=== PATIENT | female | born 1980 | race Caucasian/White ===

== ENCOUNTER 2017-12-29 15:58 | Emergency (ER) | payer BC ==
[~2017-12-29 15:58] MED LIST: cefTRIAXone 1 GM Vial IM ONE
[2017-12-29] MEDS ORDERED: Take Home: Amoxicillin 500 MG Cap, 2 Cap Pack PO ONE (15:59)
--- NOTE | 2017-12-29 16:05 | EDM.PDOC ---
ED HPI GENERAL MEDICAL PROBLEM - General Chief Complaint: ENT Problem Stated Complaint: sore throat Time Seen by Provider: 12/29/17 15:58 Source of Information: Reports: Patient - History of Present Illness INITIAL COMMENTS - FREE TEXT/NARRATIVE: Patient comes into the emergency department with a 2 day history of severe sore throat, chills, fever, and swollen lymph nodes. Denies any other symptoms. - Related Data Allergies Allergy/AdvReac Type Severity Reaction Status Date / Time No Known Allergies Allergy Verified 03/12/16 16:25 Home Meds: Home Meds Amoxicillin 500 mg PO BID 9 Days #18 tablet 12/29/17 [Rx] Past Medical History Psychiatric History: Reports: Anxiety Social & Family History - Tobacco Use Smoking Status *Q: Unknown Ever Smoked ED ROS GENERAL - Review of Systems Review Of Systems: See Below Constitutional: Reports: Fever, Chills, Malaise HEENT: Reports: Throat Pain Respiratory: Reports: No Symptoms Cardiovascular: Reports: No Symptoms Endocrine: Reports: No Symptoms GI/Abdominal: Reports: No Symptoms ED EXAM, GENERAL - Physical Exam Exam: See Below Exam Limited By: No Limitations General Appearance: Alert, WD/WN, No Apparent Distress Ears: Normal External Exam, Normal Canal, Hearing Grossly Normal, Normal TMs Nose: Normal Inspection, Normal Mucosa Throat/Mouth: Other (redness, patechia, ) Head: Atraumatic, Normocephalic Neck: Supple, Full Range of Motion, Lymphadenopathy (L), Lymphadenopathy (R) Respiratory/Chest: No Respiratory Distress, Lungs Clear, Normal Breath Sounds, No Accessory Muscle Use, Chest Non-Tender Cardiovascular: Normal Peripheral Pulses Course - Orders/Labs/Meds Meds: Medications Discontinued Medications Generic Name Dose Route Start Last Admin Trade Name Nikitaq PRN Reason Stop Dose Admin Amoxicillin 1 packet 12/29/17 15:59 Take Home: Amoxicillin 500 Mg, 2 Cap Pack PO 12/29/17 16:00 ONETIME ONE Ceftriaxone Sodium 1 gm 12/29/17 15:58 Rocephin IM 12/29/17 15:59 ONETIME ONE Departure - Departure Time of Disposition: 16:15 Disposition: Home, Self-Care 01 Condition: Good Clinical Impression: Pharyngitis Qualifiers: Pharyngitis/tonsillitis etiology: unspecified etiology Qualified Code(s): J02.9 - Acute pharyngitis, unspecified - Discharge Information Prescriptions: Amoxicillin 500 mg PO BID 9 Days #18 tablet Instructions: Amoxicillin capsules or tablets, Pharyngitis Forms: ED Department Discharge - Problem List Review Problem List Initiated/Reviewed/Updated: Yes - Assessment/Plan Assessment:: 1. pharyngitis 2. severe sore throat Plan: 1. Rocephin IM injection in the ER. 2. Prescription sent with the patient filled 1 day supply sent with the patient for the pharmacy is not open until Sunday 3. Education provided with the patient regarding pharyngitis 4. Activity and diet as tolerated
== END 2017-12-29 16:53 | disposition home or self-care (01) ==
LOC: VM.ED 15:58
DX: J02.9 Acute pharyngitis, unspecified (principal)
CPT/HCPCS: 96372; 99282; A9270-GY; J0696